=== PATIENT | female | born 1995 | race Caucasian/White ===

== ENCOUNTER 2024-03-01 23:11 | Emergency (ER) | payer OTHER, SELFPAY ==
[2024-03-01 23:11] VITALS: BMI 36.3
[2024-03-01 23:12] VITALS: BP 137/97
--- NOTE | 2024-03-01 23:29 | ED.GENMED ---
Addendum entered and electronically signed by Romero Denny MD 03/03/24 12:56:
Received phone call from patient stating that her pain has been getting worse, despite taking prescribed medications. As such, advised patient to come to ED for reevaluation by myself. Prior to patient's arrival, reviewed the patient's ED chart
from 2 days ago, along with CT report.
Upon evaluation in ED, patient does have mild tenderness to palpation over #18 tooth, but there is no evidence of any significant gingival swelling/induration, requiring aspiration nor I&D at this time. In addition, patient is able to tolerate
saliva, eating, able to speak in full sentences without distress and taking her medications at home. As such, decision made to discharge patient home, with recommendation to continue Advil at home, but will prescribe short course of Percocet for
symptomatic relief. Patient advised to follow-up with her oral surgeon, as scheduled tomorrow for reevaluation. However, cautioned patient that if her symptoms significantly worsen prior to oral surgeon evaluation, i.e. fever/throat
swelling/shortness of breath/vomiting, advised patient to come to ED immediately for reevaluation. Patient expresses understanding at time of discharge.
Original Note:
History of Present Illness
General
Chief Complaint: Dental Problem
Time Seen by Provider: 03/01/24 23:22
History of Present Illness
History of Present Illness:
28-year-old female without significant past medical history presenting to the emergency department for dental pain. Patient reports symptoms for the past several days. She had a telehealth appointment, was started on Augmentin for suspected dental
abscess. She went to the dentist today, had an x-ray completed that showed an x-ray to the left lower second molar. She made an appointment with an oral surgeon and was told to continue the antibiotic. Pain continued to worsen so she went to an
outside ER, had a dental block, without significant resolution of pain. She is taking the antibiotic, however without improvement. She has been taking ibuprofen for pain. Pain remains in the left lower jaw region going down. Denies fever. Now is
reporting some pain with swallowing. Denies chest pain or difficulty breathing. Denies additional acute medical complaints
Phy Exam
Physical Exam
Physical Exam:
General: Well-appearing, no clinical signs of dehydration, nontoxic and in no acute distress
HEENT: protecting airway, overall decay to the molar of the left mandible around tooth #18/19. No palpable fluctuance to gumline. No trismus. No oropharyngeal edema or erythema. Normal phonation of voice
Neck: appears supple
CV: Normal heart rate, regular rhythm
Resp: No accessory muscle use, no increased work of breathing
Abd: No distention
Extremities: No deformities, no swelling
Neuro: alert, no focal neurologic deficit
: deferred
Rectal: deferred
Psych: Normal affect
Skin: Intact
Course
Orders/Labs/Results
Orders:
Orders
03/01/24 23:51
Complete Blood Count/With Diff Urgent
Comprehensive Metabolic Panel Urgent
HCG, Serum Qualitative Screen Urgent
03/01/24 23:52
Morphine Sulfate 4 mg IV NOW STA
Test Result ONCE
03/02/24 00:01
CT Neck With Iv Contrast Urgent
Reason For Exam: L-dental abscess, increased pain and swelling
Abnormal Lab Results
03/02/24
00:08
RBC 4.04 L 10^6/uL
(4.20-5.40)
Hct 36.3 L %
(37.0-47.0)
MCH 31.4 H pg
(27.0-31.0)
MPV 10.8 H fL
(7.4-10.4)
Abs Immat Gran (auto) 0.1 H 10^3/uL
(0-0.05)
Immature Gran % 1.1 H %
(0-0.5)
Chloride 109 H mmol/L
(98-107)
Carbon Dioxide 21 L mmol/L
(22-30)
03/02/24 00:08
03/02/24 00:08
Vital Signs
Initial and Last Documented VS:
Initial Vital Signs
Temp Pulse Resp BP Pulse Ox
98.2 F 56 18 137/97 99
03/01/24 23:12 03/01/24 23:12 03/01/24 23:12 03/01/24 23:12 03/01/24 23:12
Last Documented Vital Signs
Temp Pulse Resp BP Pulse Ox
98.2 F 56 18 136/77 99
03/01/24 23:12 03/01/24 23:12 03/01/24 23:12 03/02/24 01:14 03/02/24 01:30
MDM/Problems Addressed
MDM/Problems Addressed:
28-year-old female without significant medical history left lower dental pain. Vital signs are normal.
On exam patient is well-appearing, nontoxic. Patient with known apical abscess to her left lower molar. Given worsening pain despite antibiotics and pain medication, now with manifestation of throat discomfort, cannot safely rule out
retropharyngeal component. Overall low suspicion, nontoxic, no oropharyngeal swelling, normal phonation of voice, no trismus. Will obtain laboratory analysis and CT for further evaluation. Morphine administered for pain.
02:00 -Labs unremarkable and CT without mass or fluid collection in the neck. At this time feel stable for discharge. Will change patient's antibiotic to clindamycin. Patient has follow-up appointment with oral surgeon on . Advised
maintaining this appointment. Return precautions discussed and patient verbalized
*Critical Care Note
Total Time (30-74mins, 75-104mins- exclusive of procedures): Not Applicable
ED Attending Note
-
Portions of this chart may have been created with voice recognition software.� Occasional wrong word or��sound alike� substitutions may have occurred due to the inherent limitations of voice recognition software.
Discharge Plan
Departure
Prescriptions:
No Action
ibuprofen 600 mg Tablet
600 mg PO Q6H PRN (Reason: pain)
amoxicillin-pot clavulanate [Augmentin] 875-125 mg Tablet
1 tab PO BID
Referrals:
Tamiko Correa DO [Family Provider] -
Interventions
Interventions:
*Risk Screen - Suicide Last Done: 03/01/24 23:12
*General Assessment Last Done: 03/01/24 23:12
*Neglect/Abuse Screening Last Done: 03/01/24 23:12
ED- Fall Risk Assessment Last Done: 03/01/24 23:12
*ED COVID-19 Vaccine History Last Done: 03/01/24 23:12
Discharge Date and Time
Print Language: ARABIC
[2024-03-02] MEDS: MORPHINE SULFATE 4 MG IV (00:13)
[2024-03-02 00:21] LABS: HCG, Serum Qualitative Screen Negative
[2024-03-02 00:45] LABS: % Basophils 0.3 % (0-2); % Eosinophils 1.2 % (0-6); % Immature Granulocytes 1.1 % (0-0.5); % Lymphocytes 29.5 % (20.5-51.1); % Monocytes 6.8 % (1.7-9.3); % Neutrophils 61.1 % (42.2-75.2); Absolute Eosinophils 0.1 10^3/uL (0-0.7); Absolute Immature Granulocytes 0.1 10^3/uL (0-0.05); Absolute Lymphocytes 2.7 10^3/uL (1.2-3.4); Absolute Monocytes 0.6 10^3/uL (0.1-0.6); Absolute Neutrophils 5.6 10^3/uL (1.4-6.5); Hematocrit 36.3 % (37.0-47.0); Hemoglobin 12.7 g/dL (12.0-16.0); Mean Corpuscular Hgb 31.4 pg (27.0-31.0); Mean Corpuscular Volume 89.9 fL (81.0-99.0); Mean Platelet Volume 10.8 fL (7.4-10.4); Nucleated Red Blood Cells % 0 %; Platelet Count 280 10^3/uL (130-400); Red Blood Cell Count 4.04 10^6/uL (4.20-5.40); Red Cell Dist. Width 11.9 % (11.5-14.5); White Blood Cell Count 9.1 10^3/uL (4.8-10.8)
[2024-03-02 00:48] LABS: ALT (SGPT) 17 U/L (0-35); AST (SGOT) 21 U/L (14-36); Albumin 4.6 g/dl (3.5-5.0); Alkaline Phosphatase 83 U/L (38-126); Blood Urea Nitrogen 12 mg/dl (7-17); Calcium 9.8 mg/dl (8.4-10.2); Chloride 109 mmol/L (98-107); Estimated Creatinine Clearance 94 ml/min; Glucose 96 mg/dl (70-99); Potassium 4.2 mmol/L (3.5-5.1); Sodium 145 mmol/L (135-145); Total Bilirubin 0.5 mg/dl (0.2-1.3); Total Protein 7.3 g/dl (6.3-8.2); eGFR > 60.00
[2024-03-02 00:57] LABS: Carbon Dioxide 21 mmol/L (22-30)
[2024-03-02 01:14] VITALS: BP 136/77
[2024-03-02 02:00] VITALS: BP 118/71
== END 2024-03-02 03:02 | disposition home or self-care (01) ==
LOC: EMR 23:11
PROVIDERS: EMERGENCY PHYSICIAN Student in an Organized Health Care Education/Training Program; FAMILY PHYSICIAN Family Medicine
DX: K04.7 Periapical abscess without sinus (principal)
CPT/HCPCS: 99284; 96374; 70491; 80053; 84703; 85025; Q9967

== ENCOUNTER 2024-06-22 14:50 | Inpatient (IN) | payer OTHER, SELFPAY ==
[2024-06-22] VITALS (8 sets, daily range): BP systolic 78–126; BP diastolic 48–82; BMI 34.6; BMI 34.4
[2024-06-22 11:32] LABS: Urine Albumin 3+ (Neg - Trace); Urine Bilirubin Negative (Negative); Urine Character Cloudy (Clear); Urine Glucose Negative (Negative); Urine Ketone 3+ (Negative); Urine Leukocyte 2+ (Negative); Urine Nitrite Positive (Negative); Urine Occult Blood 4+ (Negative); Urine Urobilinogen 1+ (Neg - 1+)
[2024-06-22 11:40] LABS: % Basophils 0.3 % (0-2); % Eosinophils 1.6 % (0-6); % Immature Granulocytes 0.2 % (0-0.5); % Lymphocytes 33.2 % (20.5-51.1); % Monocytes 9.8 % (1.7-9.3); % Neutrophils 54.9 % (42.2-75.2); Absolute Eosinophils 0.1 10^3/uL (0-0.7); Absolute Lymphocytes 2.1 10^3/uL (1.2-3.4); Absolute Monocytes 0.6 10^3/uL (0.1-0.6); Absolute Neutrophils 3.4 10^3/uL (1.4-6.5); Hematocrit 37.6 % (37.0-47.0); Mean Corp Hgb Conc. 34.6 g/dL (33.0-37.0); Mean Corpuscular Volume 89.5 fL (81.0-99.0); Nucleated Red Blood Cells % 0 %; Platelet Count 212 10^3/uL (130-400); Red Cell Dist. Width 12.1 % (11.5-14.5); White Blood Cell Count 6.2 10^3/uL (4.8-10.8)
[2024-06-22 11:45] LABS: HCG, Serum Qualitative Screen Negative
[2024-06-22 11:47] LABS: ALT (SGPT) 16 U/L (0-35); AST (SGOT) 19 U/L (14-36); Albumin 4.9 g/dl (3.5-5.0); Alkaline Phosphatase 67 U/L (38-126); Blood Urea Nitrogen 15 mg/dl (7-17); Calcium 9.3 mg/dl (8.4-10.2); Carbon Dioxide 25 mmol/L (22-30); Chloride 103 mmol/L (98-107); Glucose 119 mg/dl (70-99); Potassium 4.1 mmol/L (3.5-5.1); Sodium 138 mmol/L (135-145); Total Protein 7.4 g/dl (6.3-8.2); eGFR > 60.00
[2024-06-22 11:54] LABS: Urine Color Amber
[2024-06-22 11:57] LABS: Urine Squamous Cell >30 /LPF (Few)
[2024-06-22 12:01] LABS: Urine Amorphous Seen; Urine Bacteria Many (Negative); Urine Red Blood Cell >100 /HPF (0-2)
--- NOTE | 2024-06-22 12:18 | ED.GENMED ---
History of Present Illness
<Lesia Avila PA-C - Last Filed: 06/22/24 21:13>
General
Chief Complaint: Flank Pain
Source: patient
Exam Limitations: none
Time Seen by Provider: 06/22/24 11:41
Nursing documentation reviewed up to this point in time: agreed with
History of Present Illness
History of Present Illness:
28-year-old female presenting with acute onset right flank pain this morning. Patient states she woke her from sleep around 7 AM with a intense pressure in her right flank with some radiation into her right groin. She states that pain is constant
although she has noticed very very minimal relief since arrival to the emergency department. Also reports nausea and vomiting. She has had dysuria and gross hematuria this morning, as well. No known fevers although she does report chills. No
anorexia or constipation. No shortness of breath or chest pain.
Patient does have a history of both kidney stones and kidney infections on the right side in the past.
No recent travel or recent surgeries. No exogenous hormone use.
LMP a few weeks ago. Patient did recently start taking Zepbound about 1 month ago
Review of Systems
<Lesia Avila PA-C - Last Filed: 06/22/24 21:13>
Review of Systems
Allergies reviewed?: Yes
All Other Systems: ROS reviewed and negative except as documented in HPI and ROS
Phy Exam
<Lesia Avila PA-C - Last Filed: 06/22/24 21:13>
Physical Exam
Physical Exam:
Vitals: Patient's vital signs are stable. Afebrile
General: Patient is mildly uncomfortable due to pain, no acute distress
Skin: Warm and dry, no rashes or lesions
Head: Normocephalic, atraumatic
Eyes: Sclera nonicteric. EOMs intact. No nystagmus.
Throat: Protecting airway
Neck: Normal ROM, no cervical spine tenderness, no meningismus
Cardiac: Regular rate and rhythm, no murmurs.
Pulm: Normal respiratory effort, no wheezes, rales, rhonchi heard on exam.
Abdomen: Abdomen soft. Mild reproducible tenderness in right flank area. No tenderness McBurney's point. Mild right CVA tenderness. No rash or ecchymoses.
Extremities: No evidence of cyanosis or edema. Palpable DP pulses bilaterally
Neuro: AAOx3. Grossly intact.
Psychiatric: Normal affect.
Course
<Lesia Avila PA-C - Last Filed: 06/22/24 21:13>
Orders/Labs/Results
Orders:
Orders
06/22/24 11:15
Test Result ONCE
06/22/24 11:21
Complete Blood Count/With Diff Urgent
Comprehensive Metabolic Panel Urgent
HCG, Serum Qualitative Screen Urgent
Lipase Urgent
Urinalysis Reflex To Culture Urgent
Date Specimen was Collected: 06/22/24
Time Specimen was Collected: 11:15
Urine Microscopic Reflex Cult Urgent
Urine Culture Urgent
STEPHEN Source: U
Specimen Description:
Date Specimen was Collected: 06/22/24
Time Specimen was Collected: 11:15
06/22/24 12:01
Abdomen/Pelvis wo Contrast CT [CT Abd/pelvis Wo Iv Cont] Urgent
Comment: hx kidney stone/ pylenephritis
Reason For Exam: Right flank pain, +N/V, dysuria
0.9% Sodium Chloride 1000 ml [Nss] 1,000 ml IV BOLUS
Ketorolac [Toradol] 15 mg IV NOW STA
Ondansetron Injectable [Zofran] 4 mg IV NOW STA
06/22/24 12:56
HYDROmorphone [Dilaudid] 0.5 mg IV NOW STA
06/22/24 12:57
HYDROmorphone [Dilaudid] 0.5 mg .ROUTE .STK-MED ONE
06/22/24 13:21
CefTRIAXone [Rocephin] 1,000 mg IV NOW STA
06/22/24 13:45
Admit/Transfer Patient As Directed
Co-Sign Provider:
Level of Care: Inpatient admission
Assign to:: Medical/Surgical
Physician / Group: andra
Diagnosis: right uvj obstructing stone
Reason for Hospitalization: right uvj obstructing stone
Expected length of stay greater than two midnights?: Yes
ELOS- Estimated Length of Stay in days: 2
I certify the patient meets the requirements for IP care: Yes
06/22/24 13:46
Code Status As Directed
Resuscitation Status: Full Code
PRN Pain Medication Management As Directed
May give lesser potent ordered pain med per pt: Yes
preference::
Protocol:: Medication orders for pain may be administered in a
manner that supports deferring to patient preference
when the pt is:
- Requesting an ordered lesser potent pain medication.
Least to most potent pain medications are defined
as: acetaminophen < NSAID < tramadol < opioids
(morphine, oxycodone, hydromorphone).
- Requesting a lesser dose of the same medication IF
ORDERED.
- Requesting a less intrusive route of administration
if both routes are prescribed by the provider (PO <
IV).
06/22/24 14:16
Ondansetron Injectable [Zofran] 4 mg IV Q6HPRN PRN
06/22/24 14:44
Strain Urine As Directed
06/22/24 15:00
Tamsulosin [Flomax] 0.4 mg PO DAILY
06/22/24 16:41
HYDROmorphone [Dilaudid] 0.5 mg IV Q4HPRN PRN
06/22/24 17:10
0.9% Sodium Chloride 1000 ml [Nss] 1,000 ml IV 150 mls/hr
06/22/24 17:10
UROLOGY CONSULT Routine
Consulting Provider: Norm Gallardo
Was physician already notified: Yes
Activity As Directed
Activity Level: As Tolerated
Pneumatic Compression Sleeves As Directed
Type: Knee high
Strain Urine As Directed
Vital Signs As Directed
Frequency: Per unit guidelines
DX Deep Vein Thrombosis Video Routine
06/22/24 18:00
Ketorolac [Toradol] 15 mg IV Q6HPRN PRN
06/23/24 06:00
Complete Blood Count/With Diff IN AM
Comprehensive Metabolic Panel IN AM
06/23/24 08:00
Sertraline HCl [Zoloft] 50 mg PO DAILY
06/23/24 14:00
CefTRIAXone [Rocephin] 1,000 mg IV Q24H
Abnormal Lab Results
06/22/24
11:21
MPV 11.0 H fL
(7.4-10.4)
Monocytes % 9.8 H %
(1.7-9.3)
Glucose 119 H mg/dl
(70-99)
Lipase 2051 H* U/L
(23-300)
Urine Ketones 3+ A
(Negative)
Ur Occult Blood Reflex 4+ A
(Negative)
Urine Nitrite (Reflex) Positive A
(Negative)
Leukocyte Esterase Rfl 2+ A
(Negative)
Urine RBC >100 A /HPF
(0-2)
Urine Bacteria (Reflex) Many A
(Negative)
Urine Albumin (Reflex) 3+ A
(Neg - Trace)
06/22/24 11:21
06/22/24 11:21
Vital Signs
Initial and Last Documented VS:
Initial Vital Signs
Temp Pulse Resp BP Pulse Ox
98 F 72 20 126/82 99
06/22/24 11:10 06/22/24 11:10 06/22/24 11:10 06/22/24 11:10 06/22/24 11:10
Last Documented Vital Signs
Temp Pulse Resp BP Pulse Ox
97.9 F 59 16 121/63 98
06/22/24 17:19 06/22/24 17:19 06/22/24 17:19 06/22/24 17:19 06/22/24 17:19
<Tracielucia Ye, DO - Last Filed: 06/22/24 13:46>
Orders/Labs/Results
Orders:
Orders
06/22/24 11:15
Test Result ONCE
06/22/24 11:21
Complete Blood Count/With Diff Urgent
Comprehensive Metabolic Panel Urgent
HCG, Serum Qualitative Screen Urgent
Lipase Urgent
Urinalysis Reflex To Culture Urgent
Date Specimen was Collected: 06/22/24
Time Specimen was Collected: 11:15
Urine Microscopic Reflex Cult Urgent
Urine Culture Urgent
STEPHEN Source: U
Specimen Description:
Date Specimen was Collected: 06/22/24
Time Specimen was Collected: 11:15
06/22/24 12:01
Abdomen/Pelvis wo Contrast CT [CT Abd/pelvis Wo Iv Cont] Urgent
Comment: hx kidney stone/ pylenephritis
Reason For Exam: Right flank pain, +N/V, dysuria
0.9% Sodium Chloride 1000 ml [Nss] 1,000 ml IV BOLUS
Ketorolac [Toradol] 15 mg IV NOW STA
Ondansetron Injectable [Zofran] 4 mg IV NOW STA
06/22/24 12:56
HYDROmorphone [Dilaudid] 0.5 mg IV NOW STA
06/22/24 12:57
HYDROmorphone [Dilaudid] 0.5 mg .ROUTE .STK-MED ONE
06/22/24 13:21
CefTRIAXone [Rocephin] 1,000 mg IV NOW STA
06/22/24 13:45
Admit/Transfer Patient As Directed
Co-Sign Provider:
Level of Care: Inpatient admission
Assign to:: Medical/Surgical
Physician / Group: andra
Diagnosis: right uvj obstructing stone
Reason for Hospitalization: right uvj obstructing stone
Expected length of stay greater than two midnights?: Yes
ELOS- Estimated Length of Stay in days: 2
I certify the patient meets the requirements for IP care: Yes
06/22/24 13:46
Code Status As Directed
Resuscitation Status: Full Code
PRN Pain Medication Management As Directed
May give lesser potent ordered pain med per pt: Yes
preference::
Protocol:: Medication orders for pain may be administered in a
manner that supports deferring to patient preference
when the pt is:
- Requesting an ordered lesser potent pain medication.
Least to most potent pain medications are defined
as: acetaminophen < NSAID < tramadol < opioids
(morphine, oxycodone, hydromorphone).
- Requesting a lesser dose of the same medication IF
ORDERED.
- Requesting a less intrusive route of administration
if both routes are prescribed by the provider (PO <
IV).
06/22/24 14:16
Ondansetron Injectable [Zofran] 4 mg IV Q6HPRN PRN
06/22/24 14:44
Strain Urine As Directed
06/22/24 15:00
Tamsulosin [Flomax] 0.4 mg PO DAILY
06/22/24 16:41
HYDROmorphone [Dilaudid] 0.5 mg IV Q4HPRN PRN
06/22/24 17:10
0.9% Sodium Chloride 1000 ml [Nss] 1,000 ml IV 150 mls/hr
06/22/24 17:10
UROLOGY CONSULT Routine
Consulting Provider: Norm Gallardo
Was physician already notified: Yes
Activity As Directed
Activity Level: As Tolerated
Pneumatic Compression Sleeves As Directed
Type: Knee high
Strain Urine As Directed
Vital Signs As Directed
Frequency: Per unit guidelines
DX Deep Vein Thrombosis Video Routine
06/22/24 18:00
Ketorolac [Toradol] 15 mg IV Q6HPRN PRN
06/23/24 06:00
Complete Blood Count/With Diff IN AM
Comprehensive Metabolic Panel IN AM
06/23/24 08:00
Sertraline HCl [Zoloft] 50 mg PO DAILY
06/23/24 14:00
CefTRIAXone [Rocephin] 1,000 mg IV Q24H
Abnormal Lab Results
06/22/24
11:21
MPV 11.0 H fL
(7.4-10.4)
Monocytes % 9.8 H %
(1.7-9.3)
Glucose 119 H mg/dl
(70-99)
Lipase 2051 H* U/L
(23-300)
Urine Ketones 3+ A
(Negative)
Ur Occult Blood Reflex 4+ A
(Negative)
Urine Nitrite (Reflex) Positive A
(Negative)
Leukocyte Esterase Rfl 2+ A
(Negative)
Urine RBC >100 A /HPF
(0-2)
Urine Bacteria (Reflex) Many A
(Negative)
Urine Albumin (Reflex) 3+ A
(Neg - Trace)
06/22/24 11:21
06/22/24 11:21
Vital Signs
Initial and Last Documented VS:
Initial Vital Signs
Temp Pulse Resp BP Pulse Ox
98 F 72 20 126/82 99
06/22/24 11:10 06/22/24 11:10 06/22/24 11:10 06/22/24 11:10 06/22/24 11:10
Last Documented Vital Signs
Temp Pulse Resp BP Pulse Ox
97.9 F 59 16 121/63 98
06/22/24 17:19 06/22/24 17:19 06/22/24 17:19 06/22/24 17:19 06/22/24 17:19
<Lesia Avila PA-C - Last Filed: 06/22/24 21:13>
MDM/Problems Addressed
Differential Diagnosis Includes:
Not limited to: Nephrolithiasis, pyelonephritis, cystitis, muscle strain/spasm, appendicitis, ectopic , etc.
MDM/Problems Addressed:
28-year-old female with history as documented presenting with acute onset right flank pain associate with nausea, vomiting. Patient does report dysuria and hematuria starting today. No fevers, chest pain, shortness of breath. Vital stable.
Physical exam as above. Abdomen is soft with mild tenderness in right flank. No tenderness McBurney's point. Some mild right CVA tenderness. Basic labs initiated in triage and pending. Differential broad although symptoms consistent with
possible nephrolithiasis or pyelonephritis. Urinalysis pending. Will check CT noncontrast abdomen/pelvis. Will give IVF, Toradol, Zofran.
Update: Labs reviewed. CBC without any clinically significant abnormalities. No leukocytosis. Chemistry with elevated lipase of 2050. test negative. Urine concerning for possible infection given nitrite positive, 2+ leukocyte
esterase. CT pending. Suspect elevated lipase/pancreatitis secondary to Zepbound use. Will continue IV fluids. She will likely require admission.
Update: CT shows 3 mm distal right UVJ stone with hydro. Given obstructing kidney stone with intractable pain and pancreatitis�feel admission is warranted. Will continue IV fluids. Lower suspicion for infected stone given patient is afebrile with
no leukocytosis although given somewhat equivocal UA will start IV Rocephin pending urine culture. Discussed with urology�Dtamela Gallardo. Patient admitted to hospital service in stable condition.
Chronic conditions affecting care:
History of kidney stones
Acute Exacerbation and/or Progression of Chronic Illness:
Acute pancreatitis, right distal ureteral stone
<Lesia Avila PA-C - Last Filed: 06/22/24 21:13>
*Radiology
Radiology exam reviewed: radiology read reviewed
*Pulse Oximetry
Patient hypoxic: no
*EKG
Interpreted by ED Provider?: NA
*Tapping Machine Operator Interpretation
Rate: Tapping Machine Operator- N/A
*Critical Care Note
Total Time (30-74mins, 75-104mins- exclusive of procedures): Not Applicable
<Lesia Avila PA-C - Last Filed: 06/22/24 21:13>
Patient Management
Discussion with other providers: Hospitalist and Alarm Signaler (Urology-Dr. Gallardo)
Escalation/DeEscalation of care consider admission/obs:
Admit for IVF, IV antibiotics pending urine culture
ED Attending Note
<Lesia Avila PA-C - Last Filed: 06/22/24 21:13>
-
Portions of this chart may have been created with voice recognition software.� Occasional wrong word or��sound alike� substitutions may have occurred due to the inherent limitations of voice recognition software.
<Tracie Ye DO - Last Filed: 06/22/24 13:46>
ED Attending Note
Patient seen and examined by attending physician: Yes
I performed the substantive portion of visit, reviewed & personally made and approve the management plan that is documented in note by myself or AKUA.: Yes
I performed a history and physical exam of patient and discussed management with resident, I reviewed resident's note and agree with documented findings and plan of care.: Yes
ED Attending Note:
28-year-old female with history of kidney stones presenting to the emergency department for right-sided abdominal pain and flank pain. Patient reports symptoms started this morning with nausea and vomiting. Symptoms started around 9 AM. Also
notes hematuria and dysuria. Notes generalized chills without fever. Additionally notes for the last 5 days, has had nausea and vomiting, after her Zepbound shot. Has had the symptoms with Zepbound, on the medication for the past 4 weeks. Denies
chest pain or difficulty breathing. Vital signs on arrival are normal.
On exam, patient is in no acute distress, however does appear uncomfortable secondary to pain. No significant tenderness to the abdomen, however does have right flank pain. Concern for nephrolithiasis versus pyelonephritis. Patient does note
history of kidney infections in the past. Patient is currently afebrile, nontoxic. Plan for laboratory analysis, urinalysis, CT imaging.
13:20 - Patient's labs are abnormal with high lipase, suspect likely secondary to Zepbound usage. Urine does show signs of infection. No leukocytosis. CT scan is concerning for a 3 mm stone. No significant inflammatory findings. Patient's urine
does have positive nitrates. In this setting, will treat with antibiotics. Lower suspicion for infected stone. Plan for admission for acute pancreatitis and pain control for stone
Discharge Plan
Departure
Patient Disposition: Admit
Date of Disposition: 06/22/24
Time of Disposition: 13:24
Presentation/result/management discussed w/ accepting MD/DO: Hospitalist
Discharge Problem:
Right distal ureteral calculus, Pancreatitis
Interventions
Interventions:
*Risk Screen - Suicide Last Done: 06/22/24 11:13
*General Assessment Last Done: 06/22/24 11:13
*Neglect/Abuse Screening Last Done: 06/22/24 11:13
*ED COVID-19 Vaccine History Last Done: 06/22/24 11:13
*Nursing Disposition Last Done: 06/22/24 17:21
KN-Hduhuw-Iedodhiucf Assessment Last Done: 06/22/24 13:00
ED-Female Genitourinary Assessment Last Done: 06/22/24 13:00
Discharge Date and Time
Discharge Date/Time: 06/22/24 17:21
[2024-06-22 12:26] LABS: Lipase 2051 U/L (23-300)
[2024-06-22] MEDS: NSS 1000 IV ×2 (12:31→18:14)
[2024-06-22] MEDS: ZOFRAN 4 MG IV ×2 (12:32→15:00)
[2024-06-22] MEDS: TORADOL 15 MG IV ×2 (12:32→20:09)
[2024-06-22] MEDS: DILAUDID 0.5 MG IV ×2 (12:58→16:45)
--- NOTE | 2024-06-22 13:48 | HPS.HSE ---
Family Physician
-
Family Physician: KATHARINE Alvarado
Chief Complaint
-
right flank pain
History of Present Illness
28-year-old female past medical history of nephrolithiasis, depression, preeclampsia, presenting with acute onset of right flank pain this morning. Pain radiated into her right groin. She has nausea and vomiting. Has burning with urination and
blood in the urine this morning. Denies fever but does have chills. Denies shortness of breath or chest pain. She has a history of kidney stones which have passed spontaneously in the past.
She started Zepbound for weight loss a month ago and in the first week she was very ill with headaches, nausea and vomiting and diarrhea. Symptoms have gotten better over the past month and she no longer has diarrhea.
She has a history of tachycardia for which no cause was found.
She denies smoking or alcohol use or drug use.
Medical History
Past Medical History
Past Medical History: Reports Other (nephrolithiasis, depression, preeclampsia)
Past Surgical History: Reports None
Social History
Tobacco: Non-smoker
Alcohol: None
Drug: None
Family History
Family History: Not pertinent
Allergies / Home Medications
Allergies reflects when Allergies were last updated in [facility].
Home Medications with original date entered in [facility]
Allergy/Medication List:
Allergies
Allergy/AdvReac Type Severity Reaction Status Date / Time
No Known Allergies Allergy Verified 06/22/24 11:14
Home Medications
sertraline 50 mg tablet 50 mg PO DAILY 06/22/24
tirzepatide (weight loss) 2.5 mg/0.5 mL subcutaneous pen injector (Zepbound) 2.5 mg SC FR 06/22/24
Review of Systems
-
History Source: Patient
A 12 point ROS was completed and negative except as noted: Yes
Constitutional: Reports No Symptoms
EENT: Reports No Symptoms
Respiratory: Reports No Symptoms
Cardiac: Reports No Symptoms
Abdomen/GI: Reports See HPI
: Reports See HPI
Musculoskeletal: Reports No Symptoms
Skin: Reports No Symptoms
Neurological: Reports No Symptoms
Endocrine: Reports No Symptoms
Hematologic/Lymphatic: Reports No Symptoms
Psych: Reports No Symptoms
Physical Exam
Vital Signs
Vital Signs
Temp Pulse Resp BP Pulse Ox
98 F 72 20 126/82 99
06/22/24 11:10 06/22/24 11:10 06/22/24 11:10 06/22/24 11:10 06/22/24 11:10
Physical Exam
General: Well Developed, Well Nourished and No Apparent Distress
HEENT: NormoCephalic, Moist mucous membranes and Atraumatic
Respiratory: Clear
Cardiac: S1/S2 and Regular Rhythm; No Murmur or Rub
GI: Soft, Non Distended, Normal Bowel Sounds and Tender (right flank ); No Organomegaly
Rectal: Deferred by Provider
Musculoskeletal: No Clubbing, No Cyanosis and No Edema
Skin: No Rash
Neuro: Nonfocal/grossly intact
Laboratory Results
-
06/22/24 11:21
06/22/24 11:21
Laboratory Results
Total Bilirubin 1.0 mg/dl (0.2-1.3) 06/22/24 11:21
AST 19 U/L (14-36) 06/22/24 11:21
ALT 16 U/L (0-35) 06/22/24 11:21
Alkaline Phosphatase 67 U/L (38-126) 06/22/24 11:21
Lipase 2051 U/L (23-300) H* 06/22/24 11:21
Data Reviewed
-
Lab Data: Labs Reviewed by me
Old Records: Reviewed
Impression/Plan
-
IMPRESSION:
PLAN:
# Right UVJ obstructing ureteral stone with moderate right-sided hydronephrosis
-CT scan shows 3 mm obstructing stone at the right ureterovesicular junction with associated moderate right-sided hydronephrosis, additional 1 mm nonobstructing stone within the superior inferior poles of the right kidney
-UA suggesting infection
-N.p.o.
-IV fluids
-Urine culture
-Ceftriaxone
-Strain urine
-Urology consult
# Acute pancreatitis secondary to Zepbound
-Lipase of 2000
-No pancreatic inflammation on CT scan or classic epigastric pain but patient was having correlating symptoms for the past month
-N.p.o.
-IV fluids
-Zofran, Dilaudid as needed
Obesity
-Stop Zepbound
History of preeclampsia
Depression
-Continue sertraline
History of tachycardia
-Intermittent symptoms
Full code
DVT prophylaxis�SCDs
N.p.o.
[2024-06-22] MEDS: ROCEPHIN 1000 MG IV (14:14)
--- NOTE | 2024-06-22 14:37 | CONS.URO ---
Consultation
-
Date/Time Consultation Performed: 06/22/24 1615
Requesting Provider: ED
Performing Provider: Sami
Reason for Consultation: right ureteral stone
Medical History
History of Present Illness
'28-year-old female presenting with acute onset of right flank pain this morning. Pain radiated into her right groin. She has nausea and vomiting. Has burning with urination and blood in the urine this morning. Denies fever but does have
chills. She has a history of kidney stones which have passed spontaneously in the past.
Past Medical History
Past Medical History: Other (nephrolithiasis, depression, preeclampsia, obesity)
Past Surgical History: Other (bilateral breast implants)
Allergies/Home Medications
Allergies
Allergy/AdvReac Type Severity Reaction Status Date / Time
No Known Allergies Allergy Verified 06/22/24 11:14
Home Medications
�Medication �Instructions �Recorded �Confirmed �Type
sertraline 50 mg tablet 50 mg PO DAILY 06/22/24 06/22/24 History
tirzepatide (weight loss) 2.5 2.5 mg SC FR 06/22/24 06/22/24 History
mg/0.5 mL subcutaneous pen
injector (Zepbound)
Physical Exam
Vital Signs
Vital Signs
Temp Pulse Resp BP Pulse Ox
98 F 72 20 126/82 99
06/22/24 11:10 06/22/24 11:10 06/22/24 11:10 06/22/24 11:10 06/22/24 11:10
Lab / Testing Results
Laboratory Results
06/22/24 11:21
06/22/24 11:21
Physical Exam
adult female on ED [facility]
General: No Apparent Distress
GI: Soft
Skin: Warm
Neuro: Awake and Alert
Psych: Calm and Intact Judgement
Assessment / Plan
-
Right Ureteral Stone: distal, 3 mm, partially obstructing
bilateral nonobstructing nephroliths
no evidence of urosepsis
elevated lipase suggests pancreatitis -- might by due to Zepbound
Rec: trial of passage -- a 3 mm distal stone has > 90% chance of spontaneous passage
surgery if signs of systemic infection become manifest
Data Reviewed
-
CT Scan: Image personally visualized and interpreted
Lab Data: Labs Reviewed
Old Records: Reviewed
[2024-06-22] MEDS: FLOMAX 0.4 MG PO (16:17)
[2024-06-22] MEDS: COMPAZINE 5 MG IV (20:10)
[2024-06-23 00:11] VITALS: BP 108/51
[2024-06-23] MEDS: NSS 1000 IV ×2 (01:10→08:03)
[2024-06-23] MEDS: ZOFRAN 4 MG IV ×2 (04:20→13:19)
[2024-06-23 07:00] LABS: % Basophils 0.5 % (0-2); % Eosinophils 1.1 % (0-6); % Immature Granulocytes 0.2 % (0-0.5); % Lymphocytes 35.2 % (20.5-51.1); % Monocytes 6.7 % (1.7-9.3); % Neutrophils 56.3 % (42.2-75.2); Absolute Eosinophils 0.1 10^3/uL (0-0.7); Absolute Lymphocytes 2.2 10^3/uL (1.2-3.4); Absolute Monocytes 0.4 10^3/uL (0.1-0.6); Absolute Neutrophils 3.6 10^3/uL (1.4-6.5); Hematocrit 34.6 % (37.0-47.0); Hemoglobin 11.9 g/dL (12.0-16.0); Mean Corp Hgb Conc. 34.4 g/dL (33.0-37.0); Mean Corpuscular Hgb 30.7 pg (27.0-31.0); Mean Corpuscular Volume 89.4 fL (81.0-99.0); Mean Platelet Volume 11.2 fL (7.4-10.4); Nucleated Red Blood Cells % 0 %; Platelet Count 205 10^3/uL (130-400); Red Blood Cell Count 3.87 10^6/uL (4.20-5.40); Red Cell Dist. Width 12.1 % (11.5-14.5); White Blood Cell Count 6.3 10^3/uL (4.8-10.8)
[2024-06-23 07:10] VITALS: BP 106/55
[2024-06-23 07:31] LABS: ALT (SGPT) 13 U/L (0-35); AST (SGOT) 17 U/L (14-36); Albumin 3.6 g/dl (3.5-5.0); Alkaline Phosphatase 58 U/L (38-126); Blood Urea Nitrogen 7 mg/dl (7-17); Calcium 8.9 mg/dl (8.4-10.2); Carbon Dioxide 22 mmol/L (22-30); Chloride 111 mmol/L (98-107); Estimated Creatinine Clearance 114 ml/min; Glucose 83 mg/dl (70-99); Potassium 4.2 mmol/L (3.5-5.1); Sodium 140 mmol/L (135-145); Total Bilirubin 0.6 mg/dl (0.2-1.3); Total Protein 5.8 g/dl (6.3-8.2); eGFR > 60.00
[2024-06-23] MEDS: ZOLOFT 50 MG PO (08:03)
[2024-06-23] MEDS: FLOMAX 0.4 MG PO (08:03)
--- NOTE | 2024-06-23 08:40 | W.PN.URO.CBU ---
Today's Communication / Plan
-
Rec: trial of passage -- a 3 mm distal stone has > 90% chance of spontaneous passage --patient ias agreeable
Assessment / Plan
-
Right Ureteral Stone: distal, 3 mm, partially obstructing
bilateral nonobstructing nephroliths
no evidence of urosepsis
Diagnosis
-
Date of Service: June 23, 2024
-
Patient Diagnosis:
Right Ureteral Stone: distal, 3 mm, partially obstructing
bilateral nonobstructing nephroliths
no evidence of urosepsis
elevated lipase suggests pancreatitis -- might by due to Zepbound
Subjective
-
pt asleep upon entering room
pain has been satisfactorily managed
Objective
-
Vital Signs
Temp Pulse Resp BP Pulse Ox
97.6 F 56 16 106/55 98
06/23/24 07:10 06/23/24 07:10 06/23/24 07:10 06/23/24 07:10 06/23/24 07:10
Intake and Output
06/22/24 06/23/24 06/24/24
06:59 06:59 06:59
Intake Total 850 / 850
Balance 850 / 850
Intake:
Amount of oral supplement(s) 850 / 850
consumed
Other:
Number of approximated MODERATE 2
amounts of urine
Laboratory Results
06/23/24 06:12
06/23/24 06:12
Physical Exam
-
General - well developed, well nourished, no acute distress
Care Review
Data Reviewed
Discussed with: Hospitalist
--- NOTE | 2024-06-23 12:23 | CM ---
Addendum entered by Emili Clifton RN 06/23/24 13:43:
Patient was preparing for discharge and says she feels ready to go home today. Her SO will provide a ride home.
Plan home today.
Original Note:
Patient with Dx Right Ureteral Stone. Plan trial of passage. Lipase 2050 on 06/22. Room air. Receiving IVF, IV Abx. Per nursing assessment; ambulatory in room.
Spoke with patient who resides with her children in a 1 story house.
The patient has been independent in ADLs and ambulation.
She is active and works doing photography.
The patient has no DME or prior VN.
PCP - Anjana Handley
Pharmacy - [facility]
The patient says she has 10 yr old and 16 month old children. Her SO Frantz is currently staying at his parents house and is caring for the children.
No CM d/c needs identified.
Plan home.
[2024-06-23] MEDS: TYLENOL 650 MG PO (12:28)
--- NOTE | 2024-06-23 12:46 | W.DCSUMMARY ---
Discharge Summary
Discharge Data
Date of Admission: 06/22/24
Date of Discharge: 06/23/24
-
Pending Results: No
Hospital Course
Ms. Bojorquez is a 28-year-old female with a medical history of bilateral nephrolithiasis, preeclampsia, and depression who presented with acute onset right flank pain radiating to her right groin. Her symptoms were associated with occasional
burning with urination and hematuria. She also had some nausea and vomiting and chills. She has had similar symptoms in the past which have been diagnosed as kidney stones and have passed spontaneously. Also of note, she was recently started on
Zepbound for weight loss approximately a month ago at which time she experienced headaches, nausea vomiting, and diarrhea all of which have since improved.
In the ED, she was initially mildly hypotensive but responded appropriately to IV fluid resuscitation. She was afebrile and without leukocytosis. Renal function was normal. No evidence of sepsis. However, her lipase was significantly elevated at
just over 1999. She denied any epigastric discomfort. CT imaging of her abdomen and pelvis showed a 3 mm partially obstructing stone in the right UVJ with moderate associated right-sided hydronephrosis. Her pancreas appeared normal on noncontrast
scan. She was continued on IV fluids and admitted for further evaluation and management of partially obstructing distal right ureteral stone.
Her symptoms dramatically improved. She was evaluated by urology who recommended outpatient trial of stone passage. Patient was started on Flomax and told to strain her urine to monitor for passage of stone. She will need to follow-up with the
outpatient urology office.
Her lipase elevation is likely due to recently started medication Zepbound (tirzepatide). She should discontinue this medication for now and follow-up with her PCP in a week for repeat labs to reevaluate her lipase level.
At time of hospital discharge, she was hemodynamically stable. She will be discharged to home with prescriptions for tamsulosin and pain medications. She will need to follow-up with urology and with her PCP.
Gen-AAOx3, NAD
HEENT-NC, AT, anicteric, clear oral mm
Neck-supple
CV-reg, no M, +S1/S2
Lungs-clear B/L
Abd-soft, mild right low back and suprapubic TTP, no epigastric discomfort on deep palpation
Musculoskeletal-no edema, no deformity
Skin-warm and dry
Neuro-grossly non-focal
Psych-calm, cooperative
Discharge Plan
-
Patient Disposition: Home (Routine Discharge)
Discharge Diagnosis/Procedures: Kidney stone
Diet: No restrictions
Activity: No restrictions
Wound Care: strain urine at every void to ensure that stone has passed; if stone does not pass by July, then right kidney will slowly, permanently lose function
Activity Restrictions/Additional Instructions:
Ms. Bojorquez is a 28-year-old female with a medical history of bilateral nephrolithiasis, preeclampsia, and depression who presented with acute onset right flank pain radiating to her right groin. Her symptoms were associated with occasional
burning with urination and hematuria. She also had some nausea and vomiting and chills. She has had similar symptoms in the past which have been diagnosed as kidney stones and have passed spontaneously. Also of note, she was recently started on
Zepbound for weight loss approximately a month ago at which time she experienced headaches, nausea vomiting, and diarrhea all of which have since improved.
In the ED, she was initially mildly hypotensive but responded appropriately to IV fluid resuscitation. She was afebrile and without leukocytosis. Renal function was normal. No evidence of sepsis. However, her lipase was significantly elevated at
just over 1999. She denied any epigastric discomfort. CT imaging of her abdomen and pelvis showed a 3 mm partially obstructing stone in the right UVJ with moderate associated right-sided hydronephrosis. Her pancreas appeared normal on noncontrast
scan. She was continued on IV fluids and admitted for further evaluation and management of partially obstructing distal right ureteral stone.
Her symptoms dramatically improved. She was evaluated by urology who recommended outpatient trial of stone passage. Patient was started on Flomax and told to strain her urine to monitor for passage of stone. She will need to follow-up with the
outpatient urology office.
Her lipase elevation is likely due to recently started medication Zepbound (tirzepatide). She should discontinue this medication for now and follow-up with her PCP in a week for repeat labs to reevaluate her lipase level.
At time of hospital discharge, she was hemodynamically stable. She will be discharged to home with prescriptions for tamsulosin and pain medications. She will need to follow-up with urology and with her PCP.
Referrals:
Norm Gallardo MD [Active] -
(if stone has not passed by last week of June, or if pain is intolerable
or if signs of infection develop
call to schedule surgical intervention: Right Ureteroscopy, STone Removal)
Anjana Handley CRNP [Family Provider] -
Prescriptions:
New
naproxen sodium [Aleve] 220 mg capsule
440 mg PO BID PRN (Reason: Pain) Qty: 1 0RF
tamsulosin 0.4 mg capsule
0.4 mg PO DAILY Qty: 30 0RF
tramadol 50 mg tablet
50 mg PO TID PRN (Reason: severe pain) Qty: 15 0RF
Continued
sertraline 50 mg Tablet
50 mg PO DAILY
Discontinued
Zepbound 2.5 mg/0.5 mL Pen Injector
2.5 mg SC FR
Discharge Orders:
Discharge Patient (As Directed); Ordered 06/23/24
Ordered By: Cricket Evans
Discharge Date and Time
Print Language: LAO
[2024-06-23 13:10] VITALS: BP 104/52
== END 2024-06-23 14:15 | disposition home or self-care (01) | DRG 693 ==
LOC: 4 EAST ACU 14:50
PROVIDERS: Student in an Organized Health Care Education/Training Program; ADMITTING PHYSICIAN Hospitalist; ATTENDING PHYSICIAN Internal Medicine; CONSULT PHYSICIAN Specialist; EMERGENCY PHYSICIAN Student in an Organized Health Care Education/Training Program; FAMILY PHYSICIAN Registered Nurse
DX: N13.2 Hydronephrosis with renal and ureteral calculous obstruction (principal); K85.30 Drug induced acute pancreatitis without necrosis or infection; F32.A Depression, unspecified; Z87.442 Personal history of urinary calculi; E66.9 Obesity, unspecified; Z68.34 Body mass index [BMI] 34.0-34.9, adult; Z98.82 Breast implant status; T38.3X5A Adverse effect of insulin and oral hypoglycemic [antidiabetic] drugs, initial encounter
CPT/HCPCS: 74176; 80053; 81003; 81015; 83690; 84703; 85025; 87086; 96361; 96374; 96375; 99285

== ENCOUNTER 2024-07-14 18:59 | Emergency (ER) | payer OTHER, SELFPAY ==
[2024-07-14 19:02] VITALS: BP 144/83
[2024-07-14 19:29] LABS: % Basophils 0.2 % (0-2); % Eosinophils 0.4 % (0-6); % Immature Granulocytes 0.2 % (0-0.5); % Lymphocytes 21.7 % (20.5-51.1); % Monocytes 7.9 % (1.7-9.3); % Neutrophils 69.6 % (42.2-75.2); Absolute Monocytes 0.4 10^3/uL (0.1-0.6); Absolute Neutrophils 3.2 10^3/uL (1.4-6.5); Hematocrit 38.4 % (37.0-47.0); Hemoglobin 13.8 g/dL (12.0-16.0); Mean Corp Hgb Conc. 35.9 g/dL (33.0-37.0); Mean Corpuscular Hgb 31.1 pg (27.0-31.0); Mean Corpuscular Volume 86.5 fL (81.0-99.0); Mean Platelet Volume 10.9 fL (7.4-10.4); Nucleated Red Blood Cells % 0 %; Platelet Count 192 10^3/uL (130-400); Red Blood Cell Count 4.44 10^6/uL (4.20-5.40); Red Cell Dist. Width 12.4 % (11.5-14.5); White Blood Cell Count 4.6 10^3/uL (4.8-10.8)
[2024-07-14 19:40] LABS: Urine Albumin 1+ (Neg - Trace); Urine Bilirubin Negative (Negative); Urine Character Slightly Cloudy (Clear); Urine Color Yellow; Urine Glucose Negative (Negative); Urine Ketone 1+ (Negative); Urine Leukocyte 2+ (Negative); Urine Nitrite Negative (Negative); Urine Occult Blood Negative (Negative); Urine Specific Gravity 1.015 (<1.030); Urine Urobilinogen Negative (Neg - 1+)
[2024-07-14 19:43] LABS: HCG, Serum Qualitative Screen Negative
[2024-07-14 19:46] LABS: ALT (SGPT) 30 U/L (0-35); AST (SGOT) 29 U/L (14-36); Albumin 5.1 g/dl (3.5-5.0); Alkaline Phosphatase 81 U/L (38-126); Blood Urea Nitrogen 12 mg/dl (7-17); Calcium 9.4 mg/dl (8.4-10.2); Carbon Dioxide 22 mmol/L (22-30); Chloride 103 mmol/L (98-107); Glucose 87 mg/dl (70-99); Potassium 3.8 mmol/L (3.5-5.1); Sodium 135 mmol/L (135-145); Total Protein 7.7 g/dl (6.3-8.2); eGFR > 60.00
[2024-07-14 19:58] LABS: Urine Mucus Few; Urine Squamous Cell >30 /LPF (Few)
[2024-07-14 19:59] LABS: Urine Bacteria Many (Negative); Urine Red Blood Cell 0-2 /HPF (0-2)
[2024-07-14] MEDS: TORADOL 15 MG IV (21:24)
[2024-07-14] MEDS: NSS 1000 IV (21:24)
[2024-07-14] MEDS: ZOFRAN 4 MG IV (21:35)
--- NOTE | 2024-07-14 22:45 | ED.GENMED ---
History of Present Illness
General
Chief Complaint: Flank Pain
Source: patient
Exam Limitations: none
Time Seen by Provider: 07/14/24 20:23
Nursing documentation reviewed up to this point in time: agreed with
History of Present Illness
History of Present Illness:
pt is a 28 yo F
h/o kidney stone, pyelo
ws here 06/22 for R sided abd pain to R groin
recently had started zepbound
lipase was significant elevated but ct showed just a small R 3 mm UVJ obstructing stone with moderate hydrro
pancreas looked normal on noncontrast ct
pt looked much better after pain meds and IVF
they felt that her lipase elevationw as related to her zepbound
she went home and has been urinating through a strainer but has not seen a stone.
pt says her pain seems to have not gone away but gotten worse recently with nausea
still R sided into right back and right lower abdomen
has some urinary symptoms
no fever/chills
watned to come back before she turned into pyelo.
Past History
Past History
ED Past Medical History: Other (kidney stone)
Social History
Tobacco: Non-smoker
Review of Systems
Review of Systems
Allergies reviewed?: Yes
All Other Systems: Not applicable
Phy Exam
Physical Exam
Physical Exam:
GENERAL: Alert, very comfortable
Neck: supple
CARDIAC: Regular rate and rhythm .
LUNGS: Clear breath sounds bilaterally, no acute respiratory distress, no wheezes/rales/rhonchi
ABDOMEN: Soft, normal bowel sounds, nondistended, nontender abdomen, no guarding, no rebound, neg canales's
R cva region nontender
NEUROLOGICAL: Alert and oriented, no focal neuro deficits
SKIN: Warm and dry, skin intact.
PSYCH: Normal and appropriate interaction.
Course
Orders/Labs/Results
Orders:
Orders
07/14/24 19:05
Test Result ONCE
07/14/24 19:15
Complete Blood Count/With Diff Urgent
Comprehensive Metabolic Panel Urgent
HCG, Serum Qualitative Screen Urgent
Lipase Urgent
Comment: ADD ON
Urinalysis Reflex To Culture Urgent
Date Specimen was Collected: 07/14/24
Time Specimen was Collected: 19:05
Urine Microscopic Reflex Cult Urgent
Urine Culture Urgent
STEPHEN Source: U
Specimen Description:
Date Specimen was Collected: 07/14/24
Time Specimen was Collected: 19:05
07/14/24 21:05
CT Abd/pel Without Iv Or Oral Urgent
Comment:
Reason For Exam: kidneys tone
0.9% Sodium Chloride 1000 ml [Nss] 1,000 ml IV BOLUS
HYDROmorphone [Dilaudid] 0.5 mg IV NOW STA
Ketorolac [Toradol] 15 mg IV NOW STA
07/14/24 21:23
Ondansetron Injectable [Zofran] 4 mg .ROUTE .STK-MED ONE
07/14/24 21:33
Ondansetron Injectable [Zofran] 4 mg IV NOW STA
07/14/24 22:45
Morphine Sulfate 4 mg IV NOW STA
07/14/24 23:02
Add On- LAB Urgent
Tests Added?: lipase
07/14/24 23:36
Cefdinir [Omnicef] 300 mg PO NOW STA
Phenazopyridine HCl [Pyridium] 200 mg PO NOW STA
Abnormal Lab Results
07/14/24
19:15
WBC 4.6 L 10^3/uL
(4.8-10.8)
MCH 31.1 H pg
(27.0-31.0)
MPV 10.9 H fL
(7.4-10.4)
Absolute Lymphs (auto) 1.0 L 10^3/uL
(1.2-3.4)
Albumin 5.1 H g/dl
(3.5-5.0)
Urine Ketones 1+ A
(Negative)
Leukocyte Esterase Rfl 2+ A
(Negative)
Urine Bacteria (Reflex) Many A
(Negative)
Urine Albumin (Reflex) 1+ A
(Neg - Trace)
07/14/24 19:15
07/14/24 19:15
Vital Signs
Initial and Last Documented VS:
Initial Vital Signs
Temp Pulse Resp BP Pulse Ox
37.0 C 117 18 144/83 99
07/14/24 19:02 07/14/24 19:02 07/14/24 19:02 07/14/24 19:02 07/14/24 19:02
Last Documented Vital Signs
Temp Pulse Resp BP Pulse Ox
37.0 C 70 20 99/66 99
07/14/24 19:02 07/14/24 23:05 07/14/24 23:05 07/14/24 23:05 07/14/24 19:02
MDM/Problems Addressed
Differential Diagnosis Includes:
kidney stone, uti, kidney infection, cholelithiasis
MDM/Problems Addressed:
28-year-old female with a history of pyelonephritis previously and kidney stones just a couple weeks ago here with continued right flank pain into her right lower abdomen and urinary tract infection symptoms with pressure and discomfort with
urination. Patient says she actually did get better as far as the pain goes after she was admitted here but then over the last couple of days she seemed to have a recurrence of the same pain. When the patient was admitted and found to have a
kidney stone she also was found to have a lipase of 2000. Patient had no CT findings of pancreatitis and it was suspected it was due to her Zepbound. She stopped the Zepbound but has not have her lipase rechecked yet. Patient is not vomiting, she
looks fairly comfortable. There was mild CVA tenderness and right flank tenderness on exam, mild suprapubic pressure. Her urine looks like it is contaminated, there is some bacteria in it. Her white count is normal, her creatinine is normal and
her repeated lipase is down back down to 122. Her CT scan shows no findings of hydronephrosis or kidney stone as per previous study. Her pain is controlled now after IV pain medications. She does feel a lot of symptoms related to UTI and has had
pyelonephritis and is fearful that she will get worse if we do not treat her with antibiotics. Will empirically start cefdinir, Pyridium, recommend close follow-up
*Critical Care Note
Total Time (30-74mins, 75-104mins- exclusive of procedures): Not Applicable
ED Attending Note
-
Portions of this chart may have been created with voice recognition software.� Occasional wrong word or��sound alike� substitutions may have occurred due to the inherent limitations of voice recognition software.
Discharge Plan
Departure
Patient Disposition: Home (Routine Discharge)
Date of Disposition: 07/14/24
Time of Disposition: 23:33
Patient with high blood pressure during this ER visit?: No
Condition: Fair
Covid-19: Not Applicable
Discharge Problem:
Dysuria
Instructions: Urinary tract infection in adults - ED discharge instructions
Prescriptions:
New
cefdinir 300 mg capsule
300 mg PO BID Qty: 14 0RF
phenazopyridine [Pyridium] 200 mg tablet
200 mg PO Q8H PRN (Reason: Pain) Qty: 5 0RF
No Action
sertraline 50 mg Tablet
50 mg PO DAILY
naproxen sodium [Aleve] 220 mg capsule
440 mg PO BID PRN (Reason: Pain) Qty: 1 0RF
tamsulosin 0.4 mg capsule
0.4 mg PO DAILY Qty: 30 0RF
tramadol 50 mg tablet
50 mg PO TID PRN (Reason: severe pain) Qty: 15 0RF
Referrals:
Anjana Handley CRNP [Family Provider] - Follow up in 2-3 days
Activity Restrictions/Additional Instructions:
Your CAT scan showed does not show any signs of a kidney stone or kidney obstruction from a kidney stone. You likely passed your kidney stone at some point. Your pancreas enzymes back down to normal. Your kidney function was normal. You did have
what looks like some bacteria in your urine but it may be contaminated. Since you are having symptoms of UTI we will treat you with an antibiotic cefdinir twice a day for 7 days. Drink plenty of liquids. You can take Pyridium every 8 hours as 3
times a day as needed for bladder pain. Is going to color your pee bright orange. Follow-up with your family doctor this week. Take Tylenol or ibuprofen for additional pain. Return for fever, vomiting, worsening pain or any concern
Interventions
Interventions:
*Risk Screen - Suicide Last Done: 07/14/24 19:02
*General Assessment Last Done: 07/14/24 19:02
*Neglect/Abuse Screening Last Done: 07/14/24 19:02
*ED- Fall Risk Assessment Last Done: 07/14/24 19:02
*ED COVID-19 Vaccine History Last Done: 07/14/24 19:02
WB-Ytatwy-Gppzvvfoew Assessment Last Done: 07/14/24 22:32
ED-Female Genitourinary Assessment Last Done: 07/14/24 22:32
Discharge Date and Time
Print Language: FAROESE
[2024-07-14 23:05] VITALS: BP 99/66
[2024-07-14] MEDS: MORPHINE SULFATE 4 MG IV (23:05)
[2024-07-14 23:29] LABS: Lipase 122 U/L (23-300)
[2024-07-14] MEDS: OMNICEF 300 MG PO (23:48)
[2024-07-14] MEDS: Pyridium 200 MG PO (23:49)
== END 2024-07-15 00:48 | disposition home or self-care (01) ==
LOC: EMR 18:59
PROVIDERS: Emergency Medicine; EMERGENCY PHYSICIAN Emergency Medicine; FAMILY PHYSICIAN Registered Nurse
DX: R30.0 Dysuria (principal); Z87.440 Personal history of urinary (tract) infections; Z87.442 Personal history of urinary calculi
CPT/HCPCS: 99284; 96374; 96375; 96361; 74176; 80053; 81003; 81015; 83690; 84703; 85025; 87086